=== PATIENT | male | born 1950 | race Caucasian/White ===

== ENCOUNTER 2018-04-06 17:38 | Outpatient (CLI) | payer MEDICARE, OTHER | END 2018-04-06 17:39 | disposition critical access hospital (66) | LOC: EMS 17:38 | PROVIDERS: ATTEND Surgery | DX: I46.9 Cardiac arrest, cause unspecified (principal) | CPT/HCPCS: A0425; A0433 ==

== ENCOUNTER 2018-04-06 18:13 | Emergency (ER) | payer MEDICARE, OTHER ==
[2018-04-06] MEDS ORDERED: EPINEPHrine 4 MG in DEXTROSE 5% 246 ML IVP STA (18:22)
--- NOTE | 2018-04-06 18:33 | ED Physician Documentation ---
PD HPI CPR - Stated complaint Stated Complaint: CPR IN PROGRESS - Chief complaint Chief Complaint: Cardiac - History obtained from History obtained from: EMS - History of Present Illness Timing - onset: How many minutes ago (about 30-40 minutes), Today Preceding symptoms: Unknown Recently seen: Not recently seen Witnessed: Arrest witnessed (was sitting in car seat next to , and he rested back and started to breath unusually. tried to rouse him, but he was unresponsive. She started CPR and called EMS.) Fall: No fall Bystander CPR: Bystander CPR, Downtime before CPR (just minute or two) EMS findings: Unresponsive, Apneic, Pulseless, Other (Medic states their AED stated initially that "shock indicated". 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 This improved to 55-60% most recently, with med treatment. He has pacer/AICD. The AICD was recently turned off at patient request since he was doing so well. It had never fired in the time he has had it. ) - Living Situation Living Situation: reports: With spouse/s.o. Living Arrangement: reports: At home - Family History Family history: reports: Non contributory PD ED PE NORMAL - Vitals Vital signs reviewed: Yes (monitor showing pacer spikes with electrical capture. ) - General General: Other (intubated, apneic, without responsiveness. Pupils fixed and midpoint dilated. ) - HEENT HEENT: Other (ETT in place. ) - Neck Neck: Other (JVD noted with him flat. ) - Respiratory Respiratory: Other (congested sounds bilaterally with BVM. Symmetric sounds. ) - Abdomen Abdomen: Other (no bowel sounds. mildly distended. Bedside U/S showing no free fluid. ) - Derm Derm: Other (pallor/reynolds color diffusely. ) - Extremities Extremities: No edema - Neuro Eye Opening: None Motor: None Verbal: None GCS Score: 3 Results - Vitals Vitals: Vital Signs - 24 hr 04/06/18 18:20 Temperature 35.4 C L PD MEDICAL DECISION MAKING - ED course Complexity details: considered differential (He had sudden unresponsiveness witnessed and CPR was started. EMS did ACLS maneuvers and interventions en route to the hospital and at the scene. He does have a pacer showing pacer spikes on the monitor and some electrical capture. On arrival here to the ER, bedside ultrasound done during change of CPR personnel showed minimal wall contraction correlating with the pacer spikes. There is no effective contraction of the heart. No pulses were felt. ACLS interventions were continued and subsequently a reevaluation of the heart function showed there to be no heart movement when the magnet was placed over the pacer. Removal of the magnet showed just minimal focal contraction of the heart wall. Still no pulses were felt. The monitor showing flatline. The code was called at that point. ) - Critical Care Time(min): 25 Time Includes: Direct patient care, Reassess patient, Coordinate care Data interpretation: See progress note - Sepsis Event Vital Signs: Vital Signs - 24 hr 04/06/18 18:20 Temperature 35.4 C L Departure - Departure Disposition: 20 Clinical Impression: Cardiac arrest Condition: Critical Record reviewed to determine appropriate education?: No Discharge Date/Time: 04/06/18 21:12
[2018-04-06] MEDS ORDERED: EPINEPHrine ABBOJECT 1 MG/10 ML SYRINGE IVP STA ×2 (18:36→18:38)
[2018-04-06] MEDS ORDERED: ATROPINE ABBOJECT 1 MG/10 ML SYRINGE IVP STA (18:38)
[2018-04-06] MEDS ORDERED: SODIUM CHLORIDE INHALATION 3 ML NEB ONE (20:47)
== END 2018-04-06 21:12 | disposition expired ==
LOC: ED 18:13
DX: I46.9 Cardiac arrest, cause unspecified (principal); Z95.810 Presence of automatic (implantable) cardiac defibrillator
CPT/HCPCS: 92950; 93005; 99285; 99291